=== PATIENT | female | born 1965 | race African-American/Black ===

== ENCOUNTER 2023-07-13 19:39 | Emergency (ER) | payer MEDICAID, OTHER ==
[~2023-07-13] VITALS: Ht 160 cm; Wt 68.2 kg
[~2023-07-13 19:39] MED LIST: BENZ0.5T6 PO; BENZ1TAB70; DIVA-112; HYDR25TA2 PO; METF-1211 PO; QUET25TA PO; TRAZ-252 PO
[2023-07-13 19:51] VITALS: TEMP 98.5
[2023-07-13 21:12] VITALS: BP 123/66; PULSE 76; RESP 18
== END 2023-07-13 21:37 | disposition home or self-care (01) ==
LOC: EMS 19:40
DX: E11.9 Type 2 diabetes mellitus without complications (principal); I10 Essential (primary) hypertension; F17.210 Nicotine dependence, cigarettes, uncomplicated; Z76.0 Encounter for issue of repeat prescription
CPT/HCPCS: 99281; Z7502